=== PATIENT | male | born 1955 | race Caucasian/White ===

== ENCOUNTER 2023-06-10 17:27 | Emergency (ER) | payer OTHER, SELFPAY ==
[2023-06-10 17:29] VITALS: BP 141/73; PULSE 56; RESP 16; TEMP 37.1; O2SAT 94; BMI 38.4
--- NOTE | 2023-06-10 17:47 | ED.VIS.FALL ---
HPI HPI - Fall History of Present Illness Chief Complaint: Fall Detail of Chief Complaint: Fell getting into a canoe injuring his left shoulder. Informant: patient and spouse/S.O. Occured/Mechanism Occurred: Today and Hours Mechanism/Context: Yes same level fall and Yes slip Usually ambulates: Without assistance Pain/Injury Pain Location: upper extremity Quality of Pain: Sharp and Stabbing Current Severity: Moderate Maximum Severity: Moderate Associated Symptoms Associated Symptoms: Positive for Loss of function; Negative for Parasthesias, Weakness, Inability to ambulate, Loss of consciousness or Amnesia Narrative Narrative: 68-year-old male history of cervical fusion, hypertension heart disease. He and his are going to go for a canoe ride today. As he was getting into the unsteady canoe he slipped and fell and injured his left shoulder. He is unable to move his left shoulder now. Typically he is right-hand dominant. He is never had any injury or surgery to his left shoulder. He did not hit his head. No LOC. No other complaints. This occurred about an hour ago. Prior similar symptoms: No Recent Illness/Hospitalization: No PFSH [facility] Medical History Enlarged heart HTN (hypertension) Hyperlipemia Sleep apnea Home Medications aspirin 81 mg tablet,delayed release 81 mg PO DAILY 06/10/23 [History Last Taken Unknown] atenolol 25 mg tablet 25 mg PO DAILY 06/10/23 [History Last Taken Unknown] hydrochlorothiazide 25 mg tablet 25 mg PO DAILY 06/10/23 [History Last Taken Unknown] lisinopril 5 mg tablet 5 mg PO DAILY 06/10/23 [History Last Taken Unknown] meclizine 25 mg tablet 25 mg PO TID 06/10/23 [History Last Taken Unknown] naproxen 375 mg tablet 375 mg PO QHS PRN pain 06/10/23 [History Last Taken Unknown] ondansetron 4 mg disintegrating tablet 4 mg PO TID 06/10/23 [History Last Taken Unknown] oxycodone-acetaminophen 5 mg-325 mg tablet (Percocet) 1 tab PO Q4H PRN pain 7 days #30 tabs 06/10/23 [Rx Last Taken Unknown] oxycodone-acetaminophen 5 mg-325 mg tablet (Percocet) 1 tab PO Q4H PRN pain 7 days #30 tabs 06/10/23 [Rx Last Taken Unknown] Allergy/AdvReac Type Severity Reaction Status Date / Time No Known Allergies Allergy Verified 06/10/23 17:33 Family History no significant family his Surgical History H/O knee surgery H/O spinal fusion Social History household members: spouse Smoking Status: Never smoker ROS ROS ED ROS Narrative Denies recent illness. Review of Systems ROS Unobtainable: Denies due to encephalopathy Constitutional Constitutional ED: Denies chills or fever(s) Eyes Eyes: Denies blurry vision ENT ENT ED: Denies ear pain Cardiovascular Cardiovascular: Denies chest pain Respiratory/Chest Respiratory/Chest: Denies cough or dyspnea Gastrointestinal Gastrointestinal: Denies abdominal pain Genitourinary Genitourinary ED: Denies dysuria Musculoskeletal Musculoskeletal: Denies arthralgias Integumentary Denies abscess Neurologic Neurologic: Denies headache(s) Psychiatric Psychiatric: Denies anxiety Endocrine Endocrinology: Denies polydipsia Hematologic/Lymphatic Hematologic/Lymphatic: Denies easy bleeding or easy bruising Allergic/Immunologic Allergic/Immunologic ED: Denies mouth swelling or tongue swelling EXAM Physical Exam Narrative Exam Narrative: Well-appearing 68-year-old male. Vital signs stable afebrile. H EENT exam unremarkable atraumatic. Nontender. C-spine and trachea nontender. Back nontender. Lungs are clear. Heart regular rhythm no murmur. Rate about 60. Chest wall and ribs nontender. He is moving all 4 extremities. He is tender at the left shoulder. I do not feel gross bony deformity or obvious dislocation. He cannot move the arm at the shoulder. He has normal flexion extension at the left elbow he is nontender at the left forearm. 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 Normal sensation. Normal radial pulse. Skins intact. Right upper and both lower extremities unremarkable other than some abrasions on his left knee and left lower leg. No need to repair. Neurologically is awake and alert with no focal motor deficits. Const Vital Signs: 06/10/23 17:29 06/10/23 17:35 Temperature 98.8 F Temperature Source Temporal Pulse Rate 56 L Respiratory Rate 16 Respiratory Effort Normal Blood Pressure 141/73 H Blood Pressure Mean 95 Pulse Ox 94 Oxygen Delivery Method Room Air Room Air Positive well nourished and well developed; Negative for cachectic, contractures or unkempt General Appearance ED: well developed and NAD; Negative for unkempt, cachectic or contractures Nutritional Appearance: Negative for cachectic HEENT Reports normocephalic atraumatic; Negative for trauma, contusion, hematoma or tenderness Eyes PERRL and EOMs intact bilaterally General Eye ED: Negative for pale conjunctiva or scleral icterus Neck No full ROM, no lymphadenopathy and supple Neck Narrative: Nontender. General: Negative for tenderness Chest Wall inspection of chest normal and palpation of chest normal Chest: Negative for other Resp normal respiratory effort, no retractions and clear to auscultation bilaterally Effort and Inspection: Negative for pain with movement Auscultation: Negative for rales, rhonchi or wheezes Cardio regular rate, regular rhythm, S1 normal heart sound, S2 normal heart sound and no murmurs Rate: Negative for tachycardic GI non-tender, non-distended and no masses Inspection: Negative for abdominal distention Auscultation: normoactive bowel sounds Palpation: soft; Negative for guarding Back/Spine no CVA tenderness General Back: Negative for CVA tenderness Cervical Spine: Negative for cervical spine tenderness Lumbar Spine / Lower Back: Negative for lumbar spinal tenderness Neuro oriented x3, CN's II-XII intact bilaterally, moves all extremities and No no focal motor deficits Neuro Narrative: Unable to move left shoulder. Sensorium / Orientation: alert, oriented to person, oriented to place and oriented to time; Negative for orientation impaired, confused, lethargic or stuporous Motor Exam: strength 5/5 throughout Psych mental status grossly normal and thought process normal Appearance: Negative for unkempt Attitude: No agitated Mood & Affect: Negative for depressed, anxious or tearful Skin Skin Narrative: Abrasions left knee and left lower leg General Skin Exam: Negative for other Lesions: no lesions Rashes: no rashes Trauma: abrasion; Negative for laceration or puncture MDM MDM MDM Narrative Medical decision making narrative: 68-year-old fell injuring his left shoulder. He may have a fracture or dislocation. X-rays being obtained. Treated with morphine for pain and Zofran for nausea. Will clean and dress his left lower leg abrasions. Repeat exam unchanged. He placed in a sling. He is already been treated with morphine and Zofran. Outpatient follow-up with orthopedics. They live near [place] he will follow-up there. X-rays will be sent with them. Prescription for pain meds. Radiography Diagnostic Testing: Clinical Impression(s) from Imaging Studies Shoulder X-Ray 06/10/23 18:00 IMPRESSION: 1. Displaced left humeral neck fracture. 2. Pulmonary infiltrates partially visualized, particularly on the right side. Dedicated chest x-ray recommended. Electronically Signed: Syed Blnad ([place]), at 18:18 EDT , Left shoulder x-ray 2 views interpreted both by myself and the radiologist. Shows a displaced left humeral neck fracture. Humeral head is in appropriate position in the socket. There is no dislocation. MRI of the neck showed the patient and his . Discharge Plan Triage Chief Complaint: Fall ED Provider: Miguel Angel Starkey Dx/Rx/DC Orders Clinical Impression: Fracture of left shoulder, Fall Instructions: ED Fracture, Upper Extremity Prescriptions: New oxycodone-acetaminophen [Percocet] 5-325 mg tablet 1 tab PO Q4H PRN (Reason: pain) 7 Days Qty: 30 0RF oxycodone-acetaminophen [Percocet] 5-325 mg tablet 1 tab PO Q4H PRN (Reason: pain) 7 Days Qty: 30 0RF No Action hydrochlorothiazide 25 mg tablet 25 mg PO DAILY aspirin 81 mg tablet,delayed release (DR/EC) 81 mg PO DAILY atenolol 25 mg tablet 25 mg PO DAILY lisinopril 5 mg tablet 5 mg PO DAILY naproxen 375 mg tablet 375 mg PO QHS PRN (Reason: pain) meclizine 25 mg tablet 25 mg PO TID ondansetron 4 mg tablet,disintegrating 4 mg PO TID Primary Care Provider: [facility] Activity Restrictions/Additional Instructions: You have a displaced fracture of your left proximal humerus also called a shoulder fracture. Sling for now. Call and follow-up with orthopedic physician of your choice on Monday near your hometown. You need evaluation this week by an orthopedic doctor. They can determine if they are to let this heal, manipulated or discuss with you a shoulder replacement. Ice to the area. Percocet for pain. Percocet is a strong painkiller. Plenty of fluids to prevent constipation. Stool softener as needed. Fruits, vegetables and fiber to prevent constipation. Do not drink alcohol or drive on the pain meds. You may take your sling off to shower and to sleep but it should be on the rest of the time. Disposition Disposition: Home, Self Care
[2023-06-10] MEDS: Ondansetron 4 MG/2 ML Vial IV (17:54)
[2023-06-10] MEDS: morphine 8 MG/ML Syringe 6 MG IV (17:54)
--- NOTE | 2023-06-10 18:00 | RAD_ITS ---
STUDY: X-RAY - LEFT SHOULDER REASON FOR EXAM: Male, 68 years old. trauma TECHNIQUE: 2 view(s) of the shoulder. COMPARISON: None. FINDINGS: There is mild degenerative arthrosis of the glenohumeral articulation. There is hypertrophic osteoarthrosis of the acromioclavicular joint with inferior osseous spur formation. Normal acromion. Comminuted humeral neck fracture with displaced transverse component, greater than one shaft width. The soft tissue structures are unremarkable. Parenchymal opacity of the left lung base and right lung partially visualized. Fusion hardware of the lower cervical spine. RAD/Shoulder min 2 Views IMPRESSION: 1. Displaced left humeral neck fracture. 2. Pulmonary infiltrates partially visualized, particularly on the right side. Dedicated chest x-ray recommended. Electronically Signed: Syed Bland ([place]), at 18:18 EDT ,
[2023-06-10 19:06] VITALS: RESP 16
== END 2023-06-10 19:13 | disposition home or self-care (01) ==
PROVIDERS: Emergency Provider Emergency Medicine; Visit Provider Emergency Medicine
DX: S42.92XA Fracture of left shoulder girdle, part unspecified, initial encounter for closed fracture (principal); I11.9 Hypertensive heart disease without heart failure; G47.30 Sleep apnea, unspecified; Z79.82 Long term (current) use of aspirin; Z79.899 Other long term (current) drug therapy; W18.30XA Fall on same level, unspecified, initial encounter
CPT/HCPCS: 73030; 96374; 96375; 99284; J2405